=== PATIENT | male | born 2000 | race Caucasian/White ===

== ENCOUNTER 2020-01-28 11:11 | Emergency (ER) | payer OTHER ==
[~2020-01-28] VITALS: Ht 190.5 cm; Wt 104.4 kg
[2020-01-28 11:59] LABS: BASOPHILS % (AUTO) 0 % (0-1); EOSINOPHILS % (AUTO) 1 % (1-7); LYMPHOCYTES % (AUTO) 30 % (22-44); MEAN CORPUSCULAR HEMOGLOBIN 30.6 pg (27.5-34.5); MEAN CORPUSCULAR HGB CONC 34.6 g/dL (33.2-36.2); MEAN PLATELET VOLUME 7.4 fL (7.4-10.4); MONOCYTES % (AUTO) 12 % (2-9); NEUTROPHILS % (AUTO) 57 % (42-75); PLATELET COUNT 205 x10^3/uL (130-400); RED BLOOD COUNT 5.39 x10^6/uL (4.38-5.82); RED CELL DISTRIBUTION WIDTH 12.6 % (9.4-14.8)
--- NOTE | 2020-01-28 12:00 | NUR ---
PT RESTING BACK IN BED, RESPIRATIONS EVEN AND UNLABORED ON RA. NAD NOTED AT THIS TIME. AWAITING IMAGING.
[2020-01-28 12:02] LABS: MD NO
[2020-01-28 12:08] LABS: INTERNATIONAL NORMALIZED RATIO 1.16 (0.93-1.1)
[2020-01-28 12:09] LABS: ALBUMIN 4.6 g/dL (3.4-5.0); ANION GAP 6 mmol/L (5-15); CALCIUM 9.5 mg/dL (8.5-10.1); CHLORIDE 110 mmol/L (98-107)
[2020-01-28 12:10] LABS: CREATININE 1.09 mg/dL (0.7-1.3)
--- NOTE | 2020-01-28 13:02 | NUR ---
PT UP FOR RECHECK.
[2020-01-28 15:12] VITALS: BP 125/70
== END 2020-01-28 15:14 | disposition home or self-care (01) ==
LOC: ED 11:26
DX: K62.5 Hemorrhage of anus and rectum (principal)
CPT/HCPCS: 36415; 74021; 80048; 82040; 85025; 85610; 85730; 86850; 86900; 99285